=== PATIENT | male | born 1950 | race Caucasian/White ===

== ENCOUNTER 2020-02-23 08:47 | Day surgery (SDC) | payer MEDICARE, BC ==
[2020-02-19 15:44] VITALS: BMI 29.5
[~2020-02-23 08:47] MED LIST: LACTATED RINGERS 1,000 ML IV SCH
[2020-02-23 09:02] VITALS: TEMP 96.6
[2020-02-23] MEDS ORDERED: PROPOFOL 10 MG/ML 20 ML VIAL IV ONE (10:19)
[2020-02-23] MEDS ORDERED: LIDOCAINE 1% INJ 10MG/ML (20 ML MDV) ONE (10:19)
--- NOTE | 2020-02-23 10:50 | P.PCN ---
Date of Procedure: 02/23/20 Description of Procedure: BRIEF HISTORY: Patient is a 70-year-old male presenting for outpatient colonoscopy for screening for malignant neoplasm of the colon. Last colonoscopy approximately 7 years ago as per patient report. He does report a history of polyps in the past. No change in bowel habits or blood per rectum reported. PROCEDURE PERFORMED: Colonoscopy with polypectomy. PREOPERATIVE DIAGNOSIS: Screening for malignant neoplasm of the colon. Patient reports last colonoscopy 7 years ago and reports a history of colon polyps. ESTIMATED BLOOD LOSS: Minimal. IV sedation per Anesthesia. PROCEDURE: After informed consent was obtained, the patient, was brought into the endoscopy unit. IV sedation was administered by Anesthesia under continuous monitoring. Digital rectal examination was normal. Initially the Olympus CF-190 flexible video colonoscope was then inserted in the rectum, gradually advanced into the cecum without any difficulty. Careful examination was performed as the scope was gradually being withdrawn. Ileocecal valve and the appendiceal orifice were visu alized and appeared normal. Prep was excellent. Mucosa of the cecum, ascending colon, transverse colon, descending colon, sigmoid colon, and rectum appeared normal. A few scattered diverticula in the left colon. Diminutive polyps measuring 2-3 mm in size removed from the cecum and ascending colon with cold forcep polypectomy. Low-grade internal hemorrhoids were noted. Retroflexion was performed in the rectum and no lesions were seen. The patient tolerated the procedure well. IMPRESSION: Diminutive polyps removed with cold forcep from the cecum and ascending colon. Mild left colonic diverticulosis. Internal hemorrhoids. RECOMMENDATIONS: Findings of this examination were discussed with the patient and his . Okay to resume diet. Okay to resume medications. Await pathology from polypectomies. Would recommend repeat colonoscopy in 7 years for history of colon polyps pending pathology from polypectomies.
[2020-02-23 10:51] VITALS: RESP 16
[2020-02-23 11:06] VITALS: BP 129/77; PULSE 46
== END 2020-02-23 11:21 ==
LOC: ORWHC2ENDO 08:47
PROVIDERS: ATTEND Internal Medicine
DX: Z12.11 Encounter for screening for malignant neoplasm of colon (principal); D12.0 Benign neoplasm of cecum; K63.5 Polyp of colon; K57.30 Diverticulosis of large intestine without perforation or abscess without bleeding; Z86.010 Personal history of colon polyps; K64.8 Other hemorrhoids; Z79.890 Hormone replacement therapy; Z79.899 Other long term (current) drug therapy; Z90.49 Acquired absence of other specified parts of digestive tract; Z98.890 Other specified postprocedural states
CPT/HCPCS: 88305; 45380; J2001; J2704